=== PATIENT | male | born 1960 | race Caucasian/White ===

== ENCOUNTER 2017-10-08 19:37 | Emergency (ER) | payer OTHER ==
[2017-10-08 19:54] VITALS: TEMP 97.9
[2017-10-08] MEDS ORDERED: LET GEL TOPICAL 1 EA SYR TP ONE (19:57)
--- NOTE | 2017-10-08 20:19 | EDPHY ---
H & P Time Seen by Provider: 10/08/17 19:48 HPI/ROS: CHIEF COMPLAINT: Chin laceration HISTORY OF PRESENT ILLNESS: 56-year-old male was leaving work today, exiting on a ramp which has now been used as a door way due to construction at work, when he stumbled on something and fell forward. He was caring a coffee cup in his left hand and fell landing on his right outstretched hand and his chin. No loss of consciousness. No chest pain or shortness of breath. No abdominal pain. Noted a laceration on his chin as well as abrasions to his right hand. No neck pain. No numbness or tingling. Patient drove himself home and then presented to the emergency department for repair of the chin laceration. No preceding lightheadedness, dizziness, palpitations, or shortness of breath, or chest discomfort He was otherwise well REVIEW OF SYSTEMS: Aside from elements discussed in the HPI, a comprehensive 10-point review of systems was reviewed and is negative. PAST MEDICAL HISTORY: Patient denies. No anticoagulant use. No cardiac history. SOCIAL HISTORY: . 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 VITAL SIGNS: see nurse's notes. GENERAL: Well-developed, well-nourished, in no acute distress. HEENT: Atraumatic skull and scalp. Pupils are equal round reactive to light. Extraocular movements are intact. Oropharynx clear. Abrasion on the lower inner right lip. Curvilinear 1 cm laceration under the chin. Occlusion is normal. Neck: Supple. No tenderness to palpation. LUNGS: Clear to auscultation bilaterally, no wheezes, rhonchi or rales. CARDIAC: Regular rate and rhythm, no rubs, murmurs or gallops. ABDOMEN: Benign. BACK: No vertebral tenderness. EXTREMITIES: Superficial abrasion on the right home and right 1st dorsal webspace. NEURO: Alert and oriented, cranial nerves 2-12 are intact. Motor strength and sensation normal. Gait normal. Mentation, affect, and speech normal. SKIN: Warm and dry, no rash. Smoking Status: Never smoked Constitutional: Initial Vital Signs Temperature (C) 36.6 C 10/08/17 19:50 Heart Rate 66 10/08/17 19:50 Respiratory Rate 16 10/08/17 19:50 Blood Pressure 151/80 H 10/08/17 19:50 O2 Sat (%) 96 10/08/17 19:50 O2 Delivery Mode Room Air Allergies/Adverse Reactions: No Known Allergies Allergy (Verified 10/08/17 19:49) Home Medications: Medication Instructions Recorded Herbal Supplements 10/08/17 Medical Decision Making Procedures: Procedure: Laceration repair. The 1 cm curvilinear laceration on the chin was anesthetized using Marcaine with epinephrine. The wound was cleaned and irrigated per nursing and tech documentation. Laceration was then draped and explored. There were no deep structures involved. The wound was repaired with 2 5-0 Vicryl deep suture and # 5, 5-0 Prolene simple interrupted on the skin The wound repair was simple. The procedure was performed by myself. Patient is aware the laceration will have a scar. ED Course/Re-evaluation: 56-year-old male with a chin laceration. No intraoral component. No neck pain. 2 layer closure. Follow up for suture removal in 5-7 days Differential Diagnosis: Differential diagnosis for the patient's injury was considered including but not limited to fracture, laceration, through and through laceration, contusion, cervical spine injury, abrasion. - Data Points Medications Given: Discontinued Medications Tetracaine/Epinephrine/Lidocaine (Let Gel Topical) 1 ea TP EDNOW ONE Stop: 10/08/17 19:58 Last Admin: 10/08/17 20:02 Dose: 1 ea Departure - Departure Disposition: Home, Routine, Self-Care Clinical Impression: Chin laceration Qualifiers: Encounter type: initial encounter Qualified Code(s): S01.81XA - Laceration without foreign body of other part of head, initial encounter Condition: Good Instructions: Care For Your Stitches (ED), Facial Laceration (ED) Additional Instructions: Keep wound clean and dry. Clean suture line with a mixture of hydrogen peroxide and water. Apply a thin layer of antibiotic cream. Dress wound if desired. Suture removal in 5-7 days. Watch for signs of infection. No soaking wound in water. Showers are ok. No swimming until sutures are removed. Return to emergency department if any concerns regarding infection. Tylenol or ibuprofen for any discomfort. Be seen if you developed posterior neck pain. Referrals: David Christina, [Primary Care Provider] - As per Instructions
[2017-10-08 21:15] VITALS: BP 116/78; PULSE 75; RESP 12; O2SAT 95
== END 2017-10-08 21:13 | disposition home or self-care (01) ==
LOC: CED 19:37
PROC: 0HQ1XZZ Repair Face Skin, External Approach (ICD-10-PCS; principal; 2017-10-08)
DX: S01.81XA Laceration without foreign body of other part of head, initial encounter (principal); W01.198A Fall on same level from slipping, tripping and stumbling with subsequent striking against other object, initial encounter; Y92.69 Other specified industrial and construction area as the place of occurrence of the external cause